=== PATIENT | female | born 1955 | race African-American/Black ===

== ENCOUNTER 2018-01-20 08:16 | Emergency (ER) | payer BC, OTHER ==
[2018-01-20 08:23] VITALS: BP 129/79
--- NOTE | 2018-01-20 08:33 | ED Physician Documentation ---
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 Can't get ring off finger. - ROS CONST: no problems - PAST HX Past History: none Immunizations: tetanus (within 5 years), UTD Allergies/Adverse Reactions: Allergies Allergy/AdvReac Type Severity Reaction Status Date / Time No Known Allergies Allergy Verified 01/20/18 08:22 Home Medications: Ambulatory Orders Medication Instructions Recorded Estradiol [Estrace] 1 tab PO DAILY 01/20/18 - SOCIAL HX Smoking History: non-smoker - FAMILY HX Family History: No - VITAL SIGNS Vital Signs: Vital Signs Temp Pulse Resp BP Pulse Ox 96.5 F L 89 17 129/79 98 01/20/18 08:19 01/20/18 08:19 01/20/18 08:19 01/20/18 08:19 01/20/18 08:19 - REVIEWED ASSESSMENTS Nursing Assessment Reviewed: Yes Vitals Reviewed: Yes Procedures Progress: tourniquet wrapped about left 4th finger by RN and ring removed. General Adult Physical Exam - PHYSICAL EXAM GENERAL APPEARANCE: mild distress EENT: eye inspection normal, ENT inspection normal NECK: normal inspection RESPIRATORY: no resp distress BACK: other (movements w/o pain) SKIN: warm/dry, normal color EXTREMITIES: other (left 4th finger with pumcture caden prox phalanx, some swelling, no discoloration. ring in place) NEURO: motor nml, sensation nml, cognition normal Discharge Clincal Impression: Swollen finger Clincal Impression: (Ruled Out): Swelling of finger joint of left hand Referrals: Deena Aguilar MD [Primary Care Provider] - 2 Days Condition: Good Disposition: 01 HOME, SELF-CARE Decision to Admit: NO Decision Time: 08:34
== END 2018-01-20 08:42 | disposition home or self-care (01) ==
LOC: ED 08:16
DX: R22.32 Localized swelling, mass and lump, left upper limb (principal)